=== PATIENT | female | born 1955 | race African-American/Black ===

== ENCOUNTER → 2018-10-13 | Outpatient (CLI) | payer MEDICARE | LOC: WI 07:17 | PROVIDERS: ATTEND Internal Medicine | DX: Z12.31 Encounter for screening mammogram for malignant neoplasm of breast (principal) | CPT/HCPCS: 77063; 77067 ==

== ENCOUNTER → 2018-11-24 | Outpatient (CLI) | payer MEDICARE ==
--- NOTE | 2018-11-24 11:14 | WOMENS IMAGING REPORT ---
EXAM DESCRIPTION: LEFT DIAGNOSTIC MAMMO W/CAD; U/S BREAST UNILAT LIMITED COMPLETED DATE/TIME: 11/24/2018 9:55 am; 11/24/2018 10:40 am REASON FOR STUDY: UNSPECIFIED LUMP IN LEFT BREAST, SUBAREOLAR;N63.42; LT BREAST NODULE N63.42 N63.42 UNSPECIFIED LUMP IN LEFT BREAST, SUBAREOLAR COMPARISON: 10/13/2018. EXAM PARAMETERS: True lateral and spot compression MLO and CC images acquired. LIMITATIONS: None. FINDINGS: BREAST LATERALITY: left MASSES: Oval mass in the upper-outer breast. Generally the margins are smooth although in a few area s slightly fuzzy and indistinct. CALCIFICATIONS: No new or suspicious calcifications. ARCHITECTURAL DISTORTION: None. DEVELOPING DENSITY: None. ASYMMETRY: None noted. OTHER: No other significant findings. BREAST ULTRASOUND: TECHNIQUE: Static and dynamic grayscale images acquired of the left breast in the specific areas of c linical/mammographic concern. Selected color Doppler images recorded. ELASTOGRAPHY PERFORMED: No. LIMITATIONS: None. FINDINGS: MASS: Oval hypoechoic solid mass in the upper-outer breast measuring 0.8 x 1.6 x 2.4 cm. Heterogenou s echotexture. Fairly smooth margins. ELASTOGRAPHY CHARACTERISTICS: Not applicable. OTHER: No other significant finding. IMPRESSION: Oval solid mass in the upper-outer breast with heterogenous echotexture. This is most l ikely a fibroadenoma although some of the margins are slightly indistinct and echotexture is heteroge nous and cannot entirely exclude low-grade malignant process. Biopsy may be considered. ASSESSMENT: 4 A-Suspicious abnormality. Low suspicion for malignancy. Biopsy should be performed in the absence of clinical contra-indication. BREAST DENSITY: b. There are scattered areas of fibroglandular density. BIRAD: 4A-Suspicious abnormality: Needing intervention but with a low suspicion for malignancy. Biop sy should be performed in the absence of clinical contra-indication. RECOMMENDATION: RECOMMENDED FOLLOW UP: Birads 4: Biopsy should be performed in the absence of clinic al contraindication. SPECIFIC INTERVENTION/IMAGING/CONSULTATION RECOMMENDED:The suspicious finding(s) amenable to US guide d core/vacuum assisted biopsy. COMMUNICATION:The imaging findings were not discussed with the patient. Her referring provider has be en notified of the findings. COMMENT: The patient has been notified of the results by letter per SA requirements. Additional no tification policies are in place for contacting patient with suspicious or incomplete findings. Quality ID #225: The [employer] recommends an annual screening mammogram for women aged 40 years or over. This facility utilizes a reminder system to ensure that all patients receive reminder letters, and/or direct phone calls for appointments. This includes reminders for routine scr eening mammograms, diagnostic mammograms, or other Breast Imaging Interventions when appropriate. Th is patient will be placed in the appropriate reminder system. TECHNICAL DOCUMENTATION: FINDING NUMBER: (1) ASSESSMENT: (1) JOB ID: [id number] [employer]- All Rights Reserved Reading location - IP[facility]workstation name: [email or web address]
== END ==
LOC: WI 09:28
PROVIDERS: ATTEND Internal Medicine
DX: N63.42 Unspecified lump in left breast, subareolar (principal)
CPT/HCPCS: 76642

== ENCOUNTER → 2019-05-12 | Outpatient (CLI) | payer MEDICARE, OTHER ==
--- NOTE | 2019-05-13 09:46 | WOMENS IMAGING REPORT ---
EXAM DESCRIPTION: 3D DX MAMMO LEFT UNILAT COMPLETED DATE/TIME: 05/12/2019 1:58 pm REASON FOR STUDY: N63.20 UNSPECIFIED LUMP IN THE LEFT BREAST, UNSPECIFIED QUADRANT N63.20 UNSPECIFI ED LUMP IN THE LEFT BREAST, UNSPECIFIED QUAD COMPARISON: 11/24/2018 EXAM PARAMETERS: Standard craniocaudal and mediolateral oblique images of the breast recorded using digital acquisition and breast tomosynthesis. True lateral view. Read with the assistance of CAD. .[facility] - R2 [employer] Version 9.2 LIMITATIONS: None. FINDINGS: BREAST LATERALITY: left MASSES: Smooth mass upper outer quadrant status post benign biopsy. CALCIFICATIONS: No new or suspicious calcifications. ARCHITECTURAL DISTORTION: None. ASYMMETRY: None noted. OTHER: No other significant findings. IMPRESSION: Benign findings. BREAST DENSITY: b. There are scattered areas of fibroglandular density. BIRAD: ASSESSMENT: 2 Benign findings. RECOMMENDATION: RECOMMENDED FOLLOW UP: Birads 1 or 2: The patient should resume routine screening . SPECIFIC INTERVENTION/IMAGING/CONSULTATION RECOMMENDED:No additional intervention/ imaging/consultati on needed at this time. COMMUNICATION:The imaging findings were not discussed with the patient. Her referring provider has be en notified of the findings. COMMENT: The patient has been notified of the results by letter per SA requirements. Additional no tification policies are in place for contacting patient with suspicious or incomplete findings. Quality ID #225: The [employer] recommends an annual screening mammogram for women aged 40 years or over. This facility utilizes a reminder system to ensure that all patients receive reminder letters, and/or direct phone calls for appointments. This includes reminders for routine scr eening mammograms, diagnostic mammograms, or other Breast Imaging Interventions when appropriate. Th is patient will be placed in the appropriate reminder system. TECHNICAL DOCUMENTATION: FINDING NUMBER: (1) ASSESSMENT: (1) JOB ID: [id number] [employer]- All Rights Reserved Reading location - IP/workstation name: [email or web address]
== END ==
LOC: WI 09:05
PROVIDERS: ATTEND Surgery
DX: N63.21 Unspecified lump in the left breast, upper outer quadrant (principal)
CPT/HCPCS: 77065; G0279

== ENCOUNTER 2019-10-22 07:16 | Emergency (ER) | payer MEDICARE, OTHER ==
[2019-10-22 07:43] LABS: ABSOLUTE LYMPHOCYTES (AUTO) 1.8 10^3/uL (0.5-4.7); ABSOLUTE MONOCYTES (AUTO) 1.6 10^3/uL (0.1-1.4); BASOPHILS % (AUTO) 0.3 % (0-2); HEMATOCRIT 28.5 % (36.0-47.0); HEMOGLOBIN 9.3 g/dL (12.0-15.5); LYMPHOCYTES % (AUTO) 14.7 % (13-45); MEAN CORPUSCULAR HEMOGLOBIN 25.8 pg (27.0-33.4); MEAN CORPUSCULAR HGB CONC 32.5 g/dL (32.0-36.0); MEAN CORPUSCULAR VOLUME 79 fl (80-97); PLATELET COUNT 589 10^3/uL (150-450); RED BLOOD COUNT 3.59 10^6/uL (3.72-5.28); RED CELL DISTRIBUTION WIDTH 15.4 % (11.5-14.0); TOTAL CELLS COUNTED % (AUTO) 100 %; WHITE BLOOD COUNT 12.5 10^3/uL (4.0-10.5)
--- NOTE | 2019-10-22 07:45 | ER Document Report ---
ED General - General Chief Complaint: Chest Pain Stated Complaint: CHEST PAIN Time Seen by Provider: 10/22/19 07:33 Primary Care Provider: RACHEL NOONAN MD [Primary Care Provider] - Follow up as needed Mode of Arrival: Medic Information source: Patient TRAVEL OUTSIDE OF THE [place] IN LAST 30 DAYS: No - HPI Onset: Other - chest pain started at 3am. Cough has been going on for a week. Onset/Duration: Sudden Quality of pain: Pressure Severity: Moderate Pain Level: 3 Associated symptoms: Other - cough Exacerbated by: Denies Similar symptoms previously: No Recently seen / treated by doctor: Yes - patient saw her PCP Notes: 63 year old female with a history of HTN and HLD here in the ER for 1 week of cough and chest pain/pressure since 3am. The patient has had some low grade fevers at home. The patient saw her PCP recently and was prescribed a Zpack (she has only taken one dose). The patient denies radiation of chest pain/pressure, nausea, vomiting, sweating, shortness of breath, trouble breathing. The patient has never had a cardiac cath but she says she had a normal stress test over 10 years ago. The patient says coughing makes the chest pain worse. - Related Data Allergies/Adverse Reactions: No Known Allergies Allergy (Unverified 10/22/19 07:22) Home Medications: NAPROXEN. Z PACK. SYNTHROID. METOPROLOL. NIFEDIPINE. ATORVASTATIN Past Medical History - General Information source: Patient - Social History Smoking Status: Never Smoker Frequency of alcohol use: None Drug Abuse: None Lives with: Family Family History: Reviewed & Not Pertinent Patient has suicidal ideation: No Patient has homicidal ideation: No - Past Medical History Cardiac Medical History: Reports: Hx Hypercholesterolemia, Hx Hypertension Musculoskeletal Medical History: Reports Hx Arthritis Review of Systems - Review of Systems Constitutional: Fever - low grade EENT: No symptoms reported Cardiovascular: Chest pain Respiratory: Cough Gastrointestinal: No symptoms reported Genitourinary: No symptoms reported Female Genitourinary: No symptoms reported Musculoskeletal: No symptoms reported Skin: No symptoms reported Hematologic/Lymphatic: No symptoms reported Neurological/Psychological: No symptoms reported -: Yes All other systems reviewed and negative Physical Exam - Vital signs Vitals: Resp Pulse Ox 21 H 100 10/22/19 07:24 10/22/19 07:24 - Notes Notes: GENERAL: Well-appearing, well-nourished and in no acute distress. HEAD: Atraumatic, normocephalic. EYES: Pupils equal round and reactive to light, extraocular movements intact, sclera anicteric, conjunctiva are normal. ENT: External ears normal in appearance, nares patent, oropharynx clear without exudates. Moist mucous membranes. NECK: Normal range of motion, supple without lymphadenopathy or JVD. LUNGS: Breath sounds clear to auscultation bilaterally and equal. No wheezes rales or rhonchi. HEART: Regular rate and rhythm without murmurs, rubs or gallops. ABDOMEN: Soft, nontender, normoactive bowel sounds. No guarding, no rebound. No masses appreciated. EXTREMITIES: Normal range of motion, no pitting or edema. No clubbing or cyanosis. NEUROLOGICAL: Cranial nerves II through XII grossly intact. Normal speech, normal gait. PSYCH: Normal mood, normal affect. SKIN: Warm, Dry, normal turgor, no rashes or lesions noted. Course - Re-evaluation Re-evalutation: 10/22/19 08:10 The patient had a concerning EKG with ST elevation in the inferior leads. Dr Bui of Cardiology at [place] was consulted immediately and so was Dr. Abbott of Cardiology at [facility]. Neither [employer] feel the rebecca davis's EKG is consistent with a STEMI. The patient has T wave inversions in her inferior leads and some possible reciprocle ST changes but there is no prior EKGs for comparison and the patient has had a cough for week and looks well in the ER. Patient has had a cough for a week and she developed chest pain which is made worse with coughing around 3am. 10/22/19 08:31 The patient's Trop came back at 7.3. Ramses Monaco (Dr. Abbott) was called back and he accepted the patient ER to ER with the plan to go right to the labor union business representative. Will start patient on Heparin here in the ER prior ot transfer. Dr. Abbott did not request lytics to be given prior to transfer. 10/22/19 09:49 Patient is stable for transfer at this time and EMS is here to take the patient. - Vital Signs Vital signs: Temp Pulse Resp BP Pulse Ox 98.3 F 26 H 120/69 100 10/22/19 09:31 10/22/19 09:31 10/22/19 09:31 10/22/19 09:31 - Laboratory Result Diagrams: 10/22/19 07:30 10/22/19 07:30 Laboratory results interpreted by me: 10/22/19 10/22/19 10/22/19 07:30 07:30 07:30 WBC 12.5 H RBC 3.59 L Hgb 9.3 L Hct 28.5 L MCV 79 L MCH 25.8 L RDW 15.4 H Plt Count 589 H Absolute Neuts (auto) 9.0 H Absolute Monos (auto) 1.6 H Sodium 134.2 L Glucose 118 H AST 64 H Creatine Kinase 388 H CK-MB (CK-2) 14.00 H NT-Pro-B Natriuret Pep 10/22/19 07:30 WBC RBC Hgb Hct MCV MCH RDW Plt Count Absolute Neuts (auto) Absolute Monos (auto) Sodium Glucose AST Creatine Kinase CK-MB (CK-2) NT-Pro-B Natriuret Pep 898 H - Diagnostic Test Radiology reviewed: Image reviewed, Reports reviewed - EKG Interpretation by Me EKG shows normal: Sinus rhythm, Intervals Rate: Normal Rhythm: NSR [place]/QRS: Left axis deviation Additional EKG results interpreted by me: 10/22/19 09:10 ST elevation in III, aVF, ST Depressions in aVL, ST Depressions in V2-V4 Critical Care Note - Critical Care Note Total time excluding time spent on procedures (mins): 48 Discharge - Discharge Clinical Impression: NSTEMI (non-ST elevated myocardial infarction) Chest pain Qualifiers: Chest pain type: unspecified Qualified Code(s): R07.9 - Chest pain, unspecified Condition: Fair Disposition: [facility] Referrals: RACHEL NOONAN MD [Primary Care Provider] - Follow up as needed
[2019-10-22] MEDS: NITROGLYCERIN 0.4 MG/TAB 25 TAB/BOTTLE SL PRN ×2 (07:49→08:05)
[2019-10-22 08:12] LABS: ALBUMIN 3.8 g/dL (3.5-5.0); ALKALINE PHOSPHATASE 102 U/L (38-126); ANION GAP 9 (5-19); ASPARTATE AMINO TRANSFERASE 64 U/L (14-36); BILIRUBIN,TOTAL 0.6 mg/dL (0.2-1.3); BLOOD UREA NITROGEN 19 mg/dL (7-20); CALCIUM 9.5 mg/dL (8.4-10.2); CARBON DIOXIDE 25 mmol/L (22-30); CHLORIDE 100 mmol/L (98-107); CREATINE KINASE 388 U/L (30-135); GLUCOSE 118 mg/dL (75-110); POTASSIUM 4.3 mmol/L (3.6-5.0); TOTAL PROTEIN 7.9 g/dL (6.3-8.2)
--- NOTE | 2019-10-22 08:14 | EKG REPORT ---
SEVERITY:- ABNORMAL ECG - SINUS RHYTHM LVH WITH SECONDARY REPOLARIZATION ABNORMALITY INFERIOR INFARCT, AGE INDETERMINATE , NO OLD EKG FOR COMPARISON. : Confirmed by: Bebo Mcgee MD 22-Oct-2019 08:13:23
--- NOTE | 2019-10-22 08:29 | RADIOLOGY REPORT (SQ) ---
EXAM DESCRIPTION: CHEST SINGLE VIEW IMAGES COMPLETED DATE/TIME: 10/22/2019 7:54 am REASON FOR STUDY: cp COMPARISON: None. EXAM PARAMETERS: NUMBER OF VIEWS: One view. TECHNIQUE: An AP view of the chest was obtained. RADIATION DOSE: NA LIMITATIONS: None. FINDINGS: LUNGS AND PLEURA: Dense opacity with air bronchograms in the inferior left hemithorax that obscures the contour of the left hemidiaphragm and blunts the contour of the left lateral costophren ic sulcus. MEDIASTINUM AND HILAR STRUCTURES: No mediastinal or hilar contour abnormality. HEART AND VASCULAR STRUCTURES: The cardiac silhouette is partially obscured. BONES: No acute findings. HARDWARE: None in the chest. OTHER: No other finding. IMPRESSION: Dense opacity with air bronchograms in the inferior left hemithorax that could represent a combination of pleural fluid, pneumonia and/or atelectasis. TECHNICAL DOCUMENTATION: JOB ID: [id number] [employer]- All Rights Reserved Reading location - IP/workstation name: [email or web address]
[2019-10-22 08:31] LABS: TROPONIN I 7.35 ng/mL
[2019-10-22] MEDS ORDERED: HEPARIN SOD (PORCINE) 1,000 UNIT/ML 10 ML VIAL IV ONE (08:35)
[2019-10-22] MEDS ORDERED: HEPARIN SODIUM,PORCINE/D5W 25,000 UNIT/250 ML RTUINJ IV PRN (09:00)
[2019-10-22 09:50] VITALS: BP 116/73
[2019-10-22] MEDS ORDERED: HEPARIN SOD (PORCINE) 1,000 UNIT/ML 10 ML VIAL IV PRN (11:36)
== END 2019-10-22 09:50 | disposition short-term general hospital (02) ==
LOC: ER 07:16
DX: I21.4 Non-ST elevation (NSTEMI) myocardial infarction (principal); R07.9 Chest pain, unspecified; R05 Cough; R50.9 Fever, unspecified; I10 Essential (primary) hypertension; E78.00 Pure hypercholesterolemia, unspecified
CPT/HCPCS: 93005; 96376; 99291; 96365; 36415; 82553; 82550; 85025; 80053; 84484; 83880; 71045; 93010; J1644 ×2; A9270